=== PATIENT | female | born 1980 | race Caucasian/White ===

== ENCOUNTER 2017-01-21 07:23 | Inpatient (IN) | payer OTHER ==
[~2017-01-21] VITALS: Ht 162.6 cm; Wt 94.8 kg
[~2017-01-21 07:23] MED LIST: Carboprost 250 mCg/mL Inj IM PRN; CeFAZolin Inj 2 GM in IV Premix 1 EACH IV ONE; Hemorrhage Kit, Post Partum XX ONE; Lactated Ringer's 1,000 ML IV SCH; Methylergonovine 0.2 mg/mL Inj IM PRN; Oxytocin 10 Unit/mL Inj IM PRN; Sodium Citrate-Citric Acid 30 mL Solution PO SCH
[2017-01-21] MEDS ORDERED: Sodium Citrate-Citric Acid 15 mL Solution ONE (08:25)
[2017-01-21 08:49] LABS: Mean Corpuscular Hemoglobin 31.9 pg (27.0-35.0)
[2017-01-21] MEDS ORDERED: CeFAZolin Inj 2 GM in IV Premix 1 EACH IV ONE (08:50)
[2017-01-21] MEDS ORDERED: PREN1TAB87 PO (08:52)
--- NOTE | 2017-01-21 09:09 | PCM.HPANE ---
Patient Data Surgeon Admitting Provider:Mina Zelaya MD Attending Provider:Mina Zelaya MD Primary Care Physician:Elisa Other Provider:Morgan Jacobsen Anesthesia Reason for Visit repeat with tubal repeat with tubal Ht/WT & BMI Body Mass Index Allergies Coded Allergies: No Known Allergies (Unverified , 01/21/17) Diabetes History Hx Diabetes?: Yes Medications Hypertension Medication: No Home Meds Incl Beta [place]: No Reported Medications Vit W-Ca,Fe,FA(<1 mg) ( Vitamins)1 Each Tablet1 Each PO DAILY 01/21/17 History Hx of Heart Problems?: No Hx of Respiratory Problem?: No Hx Neurologic Problems?: No Hx of GI Problems?: Yes Gastrointestinal History: Positive for:: Heartburn Female Hx: Positive for:: Currently Hx Musculoskeletal Problems?: No Hx Surgeries?: Yes (c/s) Hx Substance Use: No Smoking Status: Never Smoker Stop/Bang Treated for Sleep Apnea?: No Do You Have a CPAP Machine?: No [place] Risk Assessment: Low Risk, <3 Yes Risk Assessment Category Category 1A: Patient has history of documented sleep apnea, and HAS NOT received any narcotic, sedative or anesthesia administration during this stay. Category 1B: Patient has history of documented sleep apnea, and HAS received any narcotic , sedative or anesthesia administration during this stay Category 2: Patient has SUSPECTED Obstructive Sleep Apnea, and HAS received any narcotic , sedative or anesthesia administration during this stay. Category 3: Patient has SUSPECTED Obstructive Sleep Apnea and HAS NOT received narcotic, sedative or anesthesia administration during this stay. Category 4: Outpatient in Procedural Areas with known sleep apnea or who screen positive for High Risk via the STOP/BANG questionnaire. Exam Exam General Appearance: Oriented X3 HEENT/AIRWAY: MP 2 Lungs: Normal Air Movement Heart: Regular Rate/Rhythm Meds/Labs/Diagnostics Admission Meds Current Medications Lactated Ringer's (Lr) 1,000 ml @ 125 mls/hr Q8H IV Last administered on t 08:29; Start 01/21/17 at 06:00; Stop 01/21/17 at 13:59 Labs Test 01/21/17 08:35 White Blood Count 6.3th/mm3 (3.8-10.1) Red Blood Count 3.83mil/mm3 (3.90-5.20) Hemoglobin 12.2g/dL (12.0-15.6) Hematocrit 36.0% (35.0-46.0) Mean Corpuscular Volume 94.0fL (81-100) Mean Corpuscular Hemoglobin 31.9pg (27.0-35.0) Mean Corpuscular Hemoglobin Concent 33.9% (32.0-37.0) Red Cell Distribution Width 12.7% (12.3-15.4) Platelet Count 170bil/L (150-400) Plan Impression Patient chart reviewed, patient interviewed and anesthestic plan with risks, benefits, and alternatives discussed, and informed consent obtained. ASA Physical Status: ASA2 Mod Systemic Disease Anesthetic Plan: SAB Bene/Risks/Altern/Consents: Yes HP Complete Prior to Induction: Yes Santos Guerra MD Jan 21, 2017 09:09
[2017-01-21] MEDS ORDERED: HYDROmorphone 1 mg/mL Inj IVPUSH PRN (09:10)
[2017-01-21] MEDS ORDERED: Atropine 0.4 mg/mL Inj IV PRN (09:10)
[2017-01-21] MEDS ORDERED: fentaNYL-PF 50 mCg/mL 2 mL Inj IVPUSH PRN (09:10)
[2017-01-21] MEDS ORDERED: Morphine PF 1 mg/mL 10 mL Inj EPIDURAL ONE (09:10)
[2017-01-21] MEDS ORDERED: EPHEDrine Sulfate 50 mg/mL Inj IVPUSH PRN (09:10)
[2017-01-21] MEDS ORDERED: Carboprost 250 mCg/mL Inj IM PRN (11:40)
[2017-01-21] MEDS ORDERED: HYDROcodone-APAP 5-325 mg Tablet PO PRN (11:40)
[2017-01-21] MEDS ORDERED: LANOlin HPA 7 Gm Ointment TOPICAL PRN (11:40)
[2017-01-21] MEDS ORDERED: Oxytocin 30 Units/500 mL LR 30 UNITS in IV Premix 1 EACH IV PRN (11:40)
[2017-01-21] MEDS ORDERED: Methylergonovine 0.2 mg/mL Inj IM PRN (11:40)
[2017-01-21] MEDS ORDERED: hydrOXYzine Pamoate 25 mg Capsule PO PRN (11:40)
[2017-01-21] MEDS ORDERED: diphenhydrAMINE 50 mg Capsule PO PRN (11:40)
[2017-01-21] MEDS ORDERED: Acetaminophen IV 1,000 MG in IV Premix 1 EACH IV PRN (11:40)
[2017-01-21] MEDS ORDERED: Sodium Chloride LOK Flush 10 mL Syringe IVFLUSH PRN (11:40)
[2017-01-21] MEDS ORDERED: Oxytocin 10 Unit/mL Inj IM PRN (11:40)
[2017-01-21] MEDS ORDERED: Hemorrhage Kit, Post Partum XX ONE (11:40)
--- NOTE | 2017-01-21 11:42 | PCM.ANEP1 ---
Post Anesthesia Phase 1 PACU Phase 1 Assessment Anesthetic Administered: GA Level of Alertness: Awake, talking Pain: No Nausea or Vomiting: No Oxygen Delivery: Room Air Lungs: Normal Air Movement Santos Guerra MD Jan 21, 2017 11:42
--- NOTE | 2017-01-21 11:42 | PCM.ANEP2 ---
Post Anesthesia Evaluation ASA/CMS Post Anesthesia VS in Patient's Normal Range?: Yes Resp Stable; Airway Patent?: Yes CV Function & Hydration Stable: Yes Mental Status Recovered?: Yes Pain control Satisfactory?: Yes N/V Control Satisfactory?: Yes Santos Guerra MD Jan 21, 2017 11:42
[2017-01-21] MEDS ORDERED: Dexamethasone 4 mg/mL Inj ONE (12:29)
[2017-01-21] MEDS ORDERED: Phenylephrine/NS 100 mCg/mL 10 mL Syringe IVPUSH ONE (12:29)
[2017-01-21] MEDS ORDERED: Morphine PF 1 mg/mL 10 mL Inj ONE (12:29)
[2017-01-21] MEDS ORDERED: Ondansetron 2 mg/mL 2 mL Inj ONE (12:29)
[2017-01-21] MEDS ORDERED: Oxytocin 10 Unit/mL Inj ONE (12:29)
[2017-01-21] MEDS ORDERED: Bupiv-Spinal 0.75%/Dex 8.25% 2 mL Inj ONE (12:29)
[2017-01-21] MEDS ORDERED: MetoCLOpramide 5 mg/mL 2 mL Inj ONE (12:29)
[2017-01-21] MEDS: Lactated Ringer's 1,000 ML IV SCH (14:38)
[2017-01-21] MEDS: oxyCODONE-Acetamin 5-325 mg Tablet PO PRN ×2 (18:27→22:37)
--- NOTE | 2017-01-22 01:07 | OP ---
[address] [address] OPERATIVE REPORT PATIENT: MELISA MIRANDA : 1980 MR#: [id number] ADMIT: 01/21/2017 JOB ID: [id number] DATE OF SURGERY: 01/21/2017 PREOPERATIVE DIAGNOSIS(ES): 1. Multiparous female with two prior sections. 2. Term . 3. Unwanted fertility. 4. Gestational diabetes. POSTOPERATIVE DIAGNOSIS(ES): 1. Multiparous female with two prior sections. 2. Term . 3. Unwanted fertility. 4. Gestational diabetes. SURGERY: 1. Repeat section via Pfannenstiel incision. 2. Bilateral tubal ligation. SURGEON: Mina Zelaya MD. PRIVATE WATCHMAN: ELSA Naqvi. ANESTHESIA: Spinal. INDICATIONS: As above. COMPLICATIONS: None. FINDINGS: 1. Vigorous male with Apgars of 9 and 9. 2. Severe scar tissue. 3. Otherwise normal uterus, tubes, and ovaries. ESTIMATED BLOOD LOSS: 800 cc. INTRAVENOUS FLUIDS IN: 2200 cc of lactated Ringer's. URINE OUT: 200 cc of clear urine at the end of the procedure. PATHOLOGY: Tubes sent to Pathology for analysis. DETAIL: The patient was taken back to the OR, where spinal anesthesia was performed. Ancef 2 g IV were given to her. A procedural time-out was done. Once anesthesia was found be adequate, her prior incision site was used as a starting point for this surgery. This incision was performed and carried down to the underlying layer of fascia using the Bovie. The fascia was incised in the midline and this incision was carried laterally in each direction using the Herr scissors. Gabriel clamps were applied both superiorly and inferiorly, and the underlying muscle was dissected off the fascia in each direction. This was already more complicated due to the scarring and the fascia to the muscle. Once this had been done, an entry point superiorly on the muscle was used to enter the pelvis, but it was noted that on entry into the pelvis there was already peritoneal adhesions blocking us in almost every direction. I went ahead and dissected the muscle down inferiorly, being careful to avoid the bladder. I also provided additional dissection upward with the Bovie and replacement of the Gabriel clamps. There still was not enough space given the adhesions. Of note is that some of the abdominal muscle was stuck directly onto the uterus along with the peritoneal adhesions. One by one, these adhesions were reduced, being careful to avoid the bowel and bladder. We could not be complete in this reduction and so had to choose an area high on the patient's uterus to enter. This also involved some lateral incision of the abdominal muscle. The uterus was incised centrally and this incision was taken down to the amniotic sac with my finger. Once this had been done, I used bandage scissors to extend the incision laterally and superiorly. The amniotic sac was ruptured and clear fluid resulted. The 's head delivered easily with the nuchal cord reduced. The rest of the body delivered easily as well. The immediately cried and was vigorous on the surgical field, and so delayed cord clamping was initiated. The cord was clamped and cut after about a minute given that the was in excellent condition and the patient was not exceedingly bleeding. Cord blood was sent for analysis. The infant was handed off to the waiting respiratory therapist. The placenta was manually extracted and despite the adhesions I was able to exteriorize the uterus. Once this had been done, the uterine incision was marked with Allis clamps and a bladder blade was inserted. The uterus incision was closed using 1-0 chromic in a running, locked fashion. A second layer was applied. There was a large area of denuded peritoneum on the uterus that required extensive cautery and additional 2-0 chromic suture in a baseball stitch pattern. This seemed to stop the majority that bleeding but additional [id number] sutures with deeper 1-0 chromic suture was used to further stop the bleeding. Once this was satisfactory, pressure was applied to this area and the pelvis was irrigated. The tubes were next addressed using a modified Aleida technique. Each tube was cut with a segment taken out and two ligations of each cut end of each tube were performed using 2-0 plain suture and the ends were all cauterized. The patient tolerated this very well and the uterus was returned to the pelvis. Additional inspection of the uterus was performed and it was still bleeding to a degree, and so additional cautery was performed. This was followed by the addition of FloSeal. Finally, I also placed over the top a layer of Interceed. Bleeding was satisfactorily stopped after all of this. The muscle was closed using 2-0 chromic in a running fashion, though I had to close the lateral aspect first. Care was made to avoid the underlying bowel and bladder. Once this had been closed, inspection for bleeding was performed and none was found. The fascia was closed using 0 Vicryl in a running fashion. Finally, the subcutaneous tissue was irrigated and then it was closed using 2-0 plain suture in a running fashion. Jaren were used to close the skin and a pressure dressing was applied. Counts were correct x3. There were no other complications. The patient was taken back in excellent condition to her preoperative room.
[2017-01-22] MEDS: oxyCODONE-Acetamin 5-325 mg Tablet PO PRN ×6 (02:29→21:35)
[2017-01-22 07:44] LABS: Mean Corpuscular Hemoglobin 31.7 pg (27.0-35.0); Mean Corpuscular Volume 94.7 fL (81-100)
[2017-01-22] MEDS: Lactated Ringer's 1,000 ML IV SCH (11:37)
--- NOTE | 2017-01-23 00:07 | PROG NOTE ---
[address] [address] PROGRESS NOTE PATIENT: MELISA MIRANDA : 1980 MR#: [id number] ADMIT: 01/21/2017 JOB ID: [id number] DATE: 01/22/2017 SUBJECTIVE: The patient is now one day status post low transverse section and bilateral tubal ligation. She is doing quite well with normal pain control and advancement of diet and activity. She has had normal bleeding and normal urination. She is now status post removal of the Lawrence catheter. OBJECTIVE: Vital signs stable. Patient is afebrile. In general, she is in no acute distress. Chest: Clear to auscultation bilaterally. Heart: Regular rhythm without murmur. Abdomen with the usual low transverse wound and scar. Jaren are in place and there is no wound dehiscence. There is no extended erythema or increased pain beyond the usual postoperative pain at the site of the incision. Extremities with minimal edema bilaterally and no signs of deep venous thrombosis. IMPRESSION: The patient is one day status post repeat low transverse section and bilateral tubal ligation, doing quite well in the postoperative phase. PLAN: The patient will advance her diet and her activity, and continue with her same medications. The plan is for her to go home likely tomorrow.
[2017-01-23] MEDS: oxyCODONE-Acetamin 5-325 mg Tablet PO PRN ×3 (01:25→10:41)
--- NOTE | 2017-01-23 08:58 | PCM.DC.OB ---
Obstetrical Discharge Summary Date of Service Jan 23, 2017 Date of hospital admission Jan 21, 2017 at 07:23 Date of Discharge: Jan 23, 2017 Providers Admitting Physician: Mina Zelaya MD Primary Care Physician: Nopcp Attending Physician: Mina Zelaya MD Problems: (1) Status post repeat low transverse section Status: Acute ICD Code: Z98.89 Consultations None Invasive procedures Repeat LTCS Date of Procedure: Jan 21, 2017 Hospital Course: Patient presented for repeat . Normal case. Recovered in excellent fashion. Vit W-Ca,Fe,FA(<1 mg) ( Vitamins) 1 Each Tablet 1 EACH PO DAILY (Reported) Follow-up plan See me in eight weeks. Sooner as needed. Discharge Diet: No restrictions Discharge Activity-General: Pelvic Rest for 6 weeks, Try not to overdue, Balance rest and activity, Activity as pain allows, Activity as energy allows, No lifting >15 pounds for 2 weeks Mina Zelaya MD Jan 23, 2017 08:58
--- NOTE | 2017-01-23 08:59 | PCM.DIOB ---
Obstetrical Disch Instruction Date of Service: Jan 23, 2017 Dates of Hospitalization Date of Hospital Admission Jan 21, 2017 at 07:23 Providers Admitting Physician: Mina Zelaya MD Primary Care Physician: Nopcp Attending Physician: Mina Zelaya MD Discharge Diagnosis Problems: (1) Status post repeat low transverse section Status: Acute ICD Code: Z98.89 Diet Discharge Diet: No restrictions Activity Discharge Activity-General: Pelvic Rest for 6 weeks, Be up and about, Balance rest and activity, No lifting >15 pounds for 2 weeks Dressing and Incisional Care Hygiene: May shower, NO bathtub, hot tub or whirlpool Follow Up Plan Follow-up Provider (F9): Mina Zelaya MD Follow-up appointment: Weeks (8) Call your provider for: Fever or Chills, Shortness of breath, Heavy vaginal bleeding, Excessive constipation, Vaginal discomfort, Red painful breasts Mina Zelaya MD Jan 23, 2017 08:59
[2017-01-23] MEDS ORDERED: IBUP800T28 PO (09:02)
[2017-01-23] MEDS ORDERED: OXYC1TAB24 PO (09:02)
[2017-01-23] MEDS ORDERED: DOCU-41 PO (09:02)
--- NOTE | 2017-01-23 09:50 | PATH ---
SURGICAL PATHOLOGY Attending Physician:Mina Zelaya MD CASE STATUS: Signed Out PATIENT NAME: MELISA MIRANDA PID: [id number] : 1980 DATE COLLECTED:01/21/2017 21:05 SPECIMEN: Fallopian Tube, Biopsy CLINICAL HISTORY: UNWANTED FERTILITY 1). RIGHT FALLOPIAN TUBE HAS TAG ON IT FINAL DIAGNOSIS: Right and Left Fallopian Tubes: Segments of right and left fallopian tubes, identified. ICD10 Z30.2 GROSS DESCRIPTION: The specimen is received in one formalin filled container labeled with the patient's name, sublabeled "R. fallopian tube has tag on it" and consists of 2 cylindrical shaped portions of tissue. The first is marked with a suture designated right side and measures 0.7 x 0.6 x 0.4 CM. The specimen is inked blue. The specimen is entirely submitted in cassette A to be possibly further sectioned at the time of embedding. The second piece measures 0.7 x 0.6 x 0.5 CM. The specimen is inked black and entirely submitted in cassette B to be possibly further sectioned at the time of embedding. 01/21/2017 [facility] ICD-9 CODES: CPT CODES: 91027, 63712 Electronically Signed Out Khari Gibson MD [facility] [address] [facility], [place] [address] Technical component performed at [facility] [place], [address] [place] [address] Ave[address], [place], [address]
[2017-01-23 11:45] VITALS: BP 138/70; PULSE 108; RESP 18
[2017-01-23] MEDS ORDERED: EPHEDrine Sulfate 50 mg/mL Inj ONE ×2 (12:53)
== END 2017-01-23 12:54 | disposition home or self-care (01) | DRG 766 ==
LOC: FBC 07:23 → EDSTATUS 09:15
PROVIDERS: ADMIT Family Medicine; ATTEND Family Medicine
PROC: 0UB70ZZ Excision of Bilateral Fallopian Tubes, Open Approach (ICD-10-PCS; 2017-01-21)
PROC: 0JNC0ZZ Release Pelvic Region Subcutaneous Tissue and Fascia, Open Approach (ICD-10-PCS; 2017-01-21)
PROC: 10907ZC Drainage of Amniotic Fluid, Therapeutic from Products of Conception, Via Natural or Artificial Opening (ICD-10-PCS; 2017-01-21)
PROC: 10D00Z1 Extraction of Products of Conception, Low, Open Approach (ICD-10-PCS; principal; 2017-01-21 09:15)
DX: O34.211 Maternal care for low transverse scar from previous cesarean delivery (principal); O69.81X0 Labor and delivery complicated by cord around neck, without compression, not applicable or unspecified; O99.89 Other specified diseases and conditions complicating pregnancy, childbirth and the puerperium; O24.420 Gestational diabetes mellitus in childbirth, diet controlled; N73.6 Female pelvic peritoneal adhesions (postinfective); Z30.2 Encounter for sterilization; Z3A.39 39 weeks gestation of pregnancy; Z37.0 Single live birth; O09.523 Supervision of elderly multigravida, third trimester